=== PATIENT | female | born 1940 | race Caucasian/White ===

== ENCOUNTER 2023-10-31 20:56 | Inpatient (IN) | payer OTHER, SELFPAY ==
[2023-10-31] VITALS (10 sets, daily range): BP systolic 101–138; BP diastolic 53–85; BMI 32.9
[2023-10-31 13:57] LABS: % Basophils 0.6 % (0-2); % Immature Granulocytes 0.3 % (0-0.5); % Lymphocytes 4.4 % (20.5-51.1); % Neutrophils 88.7 % (42.2-75.2); Absolute Basophils 0.1 10^3/uL (0-0.2); Absolute Lymphocytes 0.6 10^3/uL (1.2-3.4); Absolute Monocytes 0.8 10^3/uL (0.1-0.6); Absolute Neutrophils 11.1 10^3/uL (1.4-6.5); Hematocrit 44.8 % (37.0-47.0); Hemoglobin 14.9 g/dL (12.0-16.0); Mean Corp Hgb Conc. 33.3 g/dL (33.0-37.0); Mean Corpuscular Hgb 26.7 pg (27.0-31.0); Mean Corpuscular Volume 80.3 fL (81.0-99.0); Mean Platelet Volume 10.3 fL (7.4-10.4); Nucleated Red Blood Cells % 0 %; Platelet Count 194 10^3/uL (130-400); Red Blood Cell Count 5.58 10^6/uL (4.20-5.40); Red Cell Dist. Width 14.6 % (11.5-14.5); White Blood Cell Count 12.6 10^3/uL (4.8-10.8)
[2023-10-31 14:21] LABS: ALT (SGPT) 30 U/L (0-35); AST (SGOT) 41 U/L (14-36); Albumin 4.2 g/dl (3.5-5.0); Alkaline Phosphatase 99 U/L (38-126); Blood Urea Nitrogen 20 mg/dl (7-17); Calcium 10.1 mg/dl (8.4-10.2); Carbon Dioxide 23 mmol/L (22-30); Chloride 105 mmol/L (98-107); Glucose 174 mg/dl (70-99); Lipase 117 U/L (23-300); Potassium 4.5 mmol/L (3.5-5.1); Sodium 138 mmol/L (135-145); Total Bilirubin 1.3 mg/dl (0.2-1.3); Total Protein 6.8 g/dl (6.3-8.2); eGFR 55.55
--- NOTE | 2023-10-31 16:33 | ED.GENMED ---
History of Present Illness
General
Chief Complaint: Swelling
Source: patient
Time Seen by Provider: 10/31/23 16:18
Travel History
Have you had any contact with someone who has COVID-19?: No
Do you have any symptoms of coronavirus? Fever > 100 degrees, chills, cough, shortness of breath, sore throat, loss of taste or smell, muscle aches, or headache?: No
History of Present Illness
History of Present Illness:
83-year-old female presents complaining of 2 to 3 days worth of worsening right facial swelling pain to the jaw and neck. This started shortly after she noticed the tooth broke in the right upper dental region. She is an insulin-dependent
diabetic. She was at the dentist earlier today but she was nauseous and vomiting and dentist cannot do anything for her tooth. Patient denies chest pain or shortness of breath. No other complaints at this time
Phy Exam
Physical Exam
Physical Exam:
General: Slightly uncomfortable appearing female no acute respiratory distress
HEENT: Normocephalic atraumatic right facial swelling is noted over the angle of the jaw in the submandibular region in the preauricular region. No obvious trismus or drooling or stridor. There is a small papule noted on the right buccal surface
that comes to ahead without drainage. Posterior pharynx is symmetric
Heart: Regular rate and rhythm no murmurs
Lungs: Clear to auscultation bilaterally no wheezing
Extremities: No cyanosis or edema
Scores
Heart Failure Risk
Heart Failure Risk Score: Not Applicable
Course
Orders/Labs/Results
Orders:
Orders
10/31/23 13:37
EKG [Electrocardiogram (*1)] Urgent
Reason for Study: Chest Pain
10/31/23 13:38
EKG- Treatment ONCE
10/31/23 13:50
Complete Blood Count/With Diff Urgent
Comprehensive Metabolic Panel Urgent
Lipase Urgent
Blood Culture Urgent
JADE Source: Blood/Venous
Specimen Description:
10/31/23 16:32
CT Neck With Iv Contrast Urgent
Comment:
Reason For Exam: right jaw and neck swelling
0.9% Sodium Chloride 1000 ml [Nss] 1,000 ml IV BOLUS
10/31/23 16:33
Ondansetron Injectable [Zofran] 4 mg IV NOW STA
10/31/23 19:06
Ampicillin/Sulbactam 3 G [Unasyn] 3 gm 0.9% Sodium Chloride 100 ml [Nss] 100 ml IV NOW
Abnormal Lab Results
10/31/23
13:50
WBC 12.6 H 10^3/uL
(4.8-10.8)
RBC 5.58 H 10^6/uL
(4.20-5.40)
MCV 80.3 L fL
(81.0-99.0)
MCH 26.7 L pg
(27.0-31.0)
RDW 14.6 H %
(11.5-14.5)
Absolute Neuts (auto) 11.1 H 10^3/uL
(1.4-6.5)
Absolute Lymphs (auto) 0.6 L 10^3/uL
(1.2-3.4)
Absolute Monos (auto) 0.8 H 10^3/uL
(0.1-0.6)
Neutrophils % 88.7 H %
(42.2-75.2)
Lymphocytes % 4.4 L %
(20.5-51.1)
BUN 20 H mg/dl
(7-17)
Glucose 174 H mg/dl
(70-99)
AST 41 H U/L
(14-36)
10/31/23 13:50
10/31/23 13:50
Vital Signs
Initial and Last Documented VS:
Initial Vital Signs
Temp Pulse Resp BP Pulse Ox
97.8 F 97 22 134/78 98
10/31/23 13:26 10/31/23 13:26 10/31/23 13:26 10/31/23 13:26 10/31/23 13:26
Last Documented Vital Signs
Temp Pulse Resp BP Pulse Ox
97.8 F 94 16 112/53 96
10/31/23 13:26 10/31/23 16:45 10/31/23 16:45 10/31/23 16:39 10/31/23 16:45
MDM/Problems Addressed
Differential Diagnosis Includes:
Right facial swelling. Differential could include dental abscess versus infection of the parotid gland versus cellulitis
Patient is an insulin-dependent diabetic which increases her risk factor for infection.
Labs demonstrate slight leukocytosis with a white blood cell count over 12,000.
Blood culture pending. Will order CT of neck with IV contrast. Fluids ordered Zofran ordered
*Critical Care Note
Total Time (30-74mins, 75-104mins- exclusive of procedures): Not Applicable
Update Note
Update Note:
CT demonstrates right-sided parotitis. Patient is insulin-dependent diabetic with elevated white count and is vomiting. Risk for getting more sick with this is higher. Will opt for admission. Unasyn ordered through the IV.
ED Attending Note
-
Portions of this chart may have been created with voice recognition software.� Occasional wrong word or��sound alike� substitutions may have occurred due to the inherent limitations of voice recognition software.
Discharge Plan
Departure
Patient Disposition: Admit
Date of Disposition: 10/31/23
Time of Disposition: 19:10
Admit to: Telemetry
Presentation/result/management discussed w/ accepting MD/DO: Hospitalist
Discharge Problem:
Acute suppurative parotitis
Referrals:
UNKNOWN - PT DOES,NOT KNOW [Family Provider] -
Interventions
Interventions:
*Risk Screen - Suicide Last Done: 10/31/23 16:49
*General Assessment Last Done: 10/31/23 16:49
*Neglect/Abuse Screening Last Done: 10/31/23 16:49
*ED COVID-19 Vaccine History Last Done: 10/31/23 16:49
ED- Cardiac Assessment Last Done: 10/31/23 16:51
ED- Pulmonary Assessment Last Done: 10/31/23 16:51
ED-Skin Assessment Last Done: 10/31/23 16:51
[2023-10-31] MEDS: ZOFRAN 4 MG IV (16:55)
[2023-10-31] MEDS: NSS 1000 IV ×2 (16:55→22:51)
[2023-10-31] MEDS: UNASYN IV (19:26)
--- NOTE | 2023-10-31 19:58 | HPS.HSE ---
Family Physician
-
Family Physician: NOT KNOW UNKNOWN - PT DOES
Chief Complaint
-
R Facial Pain and swelling
History of Present Illness
Patient is an 83y F with PMH significant for hypertension and DM-II who presents to ED complaining of R facial pain and swelling. Patient states that her symptoms started yesterday AM when a piece of her tooth (R maxillary) fell out. She had no
pain prior to or immediately following this event. She ate some crackers that afternoon / evening, and then she started with R sided facial pain and swelling. Her pain and swelling increased fairly significantly over a short time. She reports
thick, foul tasting discharge in the mouth and csome clear discharge from the R ear.
Patient had worsening symptoms overnight. She presented to the dentist today for evaluation. However, on her way there she developed LLQ abdominal discomfort and nausea. She had multiple episodes of N/V at the dentist office and evaluation could
not be completed. Patient was referred to the ED for further evaluation.
Patient has had no N/V since arrival here. She states that her R facial pain is much better after being given pain medications (I do not see that she received anything for pain).
Patient states that she has had 2 prior episodes of parotitis. She cannot recall which side they were on. Most recent was this past summer.
Both episodes resolved within a week at home with supportive care only. She did not seek medical attention at those times.
Patient has chronic abdominal discomfort. She states that she has a prior h/o colon cancer s/p resection.
She had a recent CT scan done early this month for evaluation, but has not heard results yet.
Medical History
Past Medical History
Past Medical History: Reports Other
Additional Past Medical History:
Hypertension
DM-II
Colon Cancer
Obesity
Past Surgical History: Reports Other
Additional Past Surgical History:
Partial Colectomy
Right Shoulder Arthroscopy
Cholecystectomy
Bilateral Carpal Tunnel Surgeries
Bilateral Digital Contracture Surgeries
Social History
Tobacco: Former Smoker (Quit smoking 40 years ago.)
Alcohol: None
Drug: None
Family History
Family History: Other (Father: Lung Cancer Mother: CAD, DM Brother: Amyloidosis Sister: Cervical Cancer)
Allergies / Home Medications
Allergies reflects when Allergies were last updated in [facility].
Home Medications with original date entered in [facility]
Allergy/Medication List:
Allergies
Allergy/AdvReac Type Severity Reaction Status Date / Time
codeine Allergy Unknown Verified 10/31/23 13:37
gabapentin Allergy Unknown Verified 10/31/23 13:37
ibuprofen [From Motrin] Allergy Unknown Verified 10/31/23 13:37
mafenide Allergy Unknown Verified 10/31/23 13:37
metoclopramide [From Reglan] Allergy Unknown Verified 10/31/23 13:37
Sulfa (Sulfonamide Allergy Unknown Verified 10/31/23 13:37
Antibiotics)
Home Medications
albuterol sulfate 90 mcg/actuation aerosol inhaler (ProAir HFA) 2 puff inhalation R QIDPRN PRN sob 10/31/23
amlodipine 5 mg tablet (Norvasc) 5 mg PO DAILY 10/31/23
aspirin 81 mg tablet,delayed release 81 mg PO DAILY 10/31/23
dicyclomine 10 mg capsule 10 mg PO TID 10/31/23
dulaglutide 1.5 mg/0.5 mL subcutaneous pen injector (Trulicity) 1.5 mg SC OG 10/31/23
empagliflozin 10 mg tablet (Jardiance) 10 mg PO DAILY 10/31/23
famotidine 40 mg tablet (Pepcid) 40 mg PO HS 10/31/23
fluticasone propionate 50 mcg/actuation nasal spray,suspension 1 spray intranasal DAILY 10/31/23
gabapentin 100 mg capsule 100 mg PO HS 10/31/23
insulin detemir U-100 100 unit/mL (3 mL) subcutaneous pen (Levemir FlexPen) 18 unit SC HS 10/31/23
lisinopril 10 mg tablet 10 mg PO QPM 10/31/23
pantoprazole 40 mg tablet,delayed release (Protonix) 40 mg PO DAILY 10/31/23
rosuvastatin 20 mg tablet (Crestor) 20 mg PO DAILY 10/31/23
Review of Systems
-
History Source: Patient
A 12 point ROS was completed and negative except as noted: Yes
Constitutional: Reports Fatigue and Chills; Denies Fever
EENT: Reports Other (R facial pain / swelling / redness. R ear clear discharge. Oral discharge. Fractured tooth.)
Respiratory: Denies Cough or Trouble Breathing
Cardiac: Denies Chest Pain or Palpitations
Abdomen/GI: Reports Abdominal Pain, Nausea and Vomiting; Denies Diarrhea, Constipated, Bloody Stools or Black Stools
: Denies Dysuria, Frequency or Flank Pain
Musculoskeletal: Denies Joint Pain or Edema
Neurological: Denies Dizzy or Headache
Psych: Denies Depression or Anxiety
Physical Exam
Vital Signs
Vital Signs
Temp Pulse Resp BP Pulse Ox
97.8 F 94 16 112/53 96
10/31/23 13:26 10/31/23 16:45 10/31/23 16:45 10/31/23 16:39 10/31/23 16:45
Physical Exam
General: Other (83y F in no acute distress.)
HEENT: Other (R parotid swelling, erythema and tenderness. No fluctuance. Erythema at salivary opening R buccal mucosa. No visible discharge. Fracture R maxillary tooth with OTC sealant in place. No surrounding erythema / induration.)
Respiratory: Clear; No Wheezes, Rales or Rhonchi
Cardiac: S1/S2 and Regular Rhythm; No Murmur
GI: Soft, Non Distended, Normal Bowel Sounds and Other (Pos tenderness in the LLQ and RUQ areas. No rebound / guarding.)
Musculoskeletal: No Clubbing, No Cyanosis and No Edema
Neuro: AO x 3
Laboratory Results
-
10/31/23 13:50
10/31/23 13:50
Laboratory Results
Total Bilirubin 1.3 mg/dl (0.2-1.3) 10/31/23 13:50
AST 41 U/L (14-36) H 10/31/23 13:50
ALT 30 U/L (0-35) 10/31/23 13:50
Alkaline Phosphatase 99 U/L (38-126) 10/31/23 13:50
Lipase 117 U/L (23-300) 10/31/23 13:50
Impression/Plan
-
A/P: Patient is an 83y F with PMH significant for HTN and DM-II who presents to ED complaining of R facial pain and swelling.
Acute Right Parotitis
- Admit for further evaluation and treatment.
- Suspect suppurative parotitis given presentation and reported oral discharge.
- IV abx with Unasyn.
- Supportive care with pain control, etc.
- ENT evaluation - especially as patient has apparently had multiple similar episodes in the past.
Abdominal Pain
N/V
- Unclear etiology. This seems a more chronic or subacute issue and patient has been seen by her outpatient physicians for this.
- With significant symptoms today and LLQ pain, will check CT A/P to rule out diverticulitis, etc.
- Patient has prior h/o colon cancer and partial colectomy.
- IVFs, antiemetics, etc.
- Follow for clinical changes / recurrent symptoms.
Fractured Tooth
- Fractured R maxillary tooth without evidence of associated infection / abscess.
- Follow-up with Dental as an outpatient after acute issues addressed.
Benign Hypertension
- Stable. Continue current med regimen.
DM-II
- Stable. Hold PO meds acutely.
- Continue basal : bolus insulins.
- SSI as needed.
- Check A1C.
Allergies
- Note that patient allergy list is clearly not reliable. She has listed aspirin and gabapentin - both of which she takes at home on a regular basis.
- She cannot recall the adverse effects of other listed medications, other than sulfa which caused severe reaction in her childhood.
- Monitor closely for any apparent adverse effects of medication(s).
DVT Prophylaxis: SCDs
Code Status: Full
[2023-10-31] MEDS: OMNIPAQUE 50 ML PO (20:49)
[2023-10-31] MEDS: PEPCID 40 MG PO (20:49)
[2023-10-31 22:21] LABS: Glucose - Point of Care 162 mg/dl (70-99)
[2023-10-31] MEDS: LEVEMIR 0.179999999999999993 UNITS SC (22:50)
[2023-10-31] MEDS: PEPCID PO (22:51)
[2023-10-31 23:38] LABS: TSH Reflex To Free T4 1.98 uIU/ml (0.47-4.68)
[2023-11-01] MEDS: UNASYN IV ×4 (02:18→19:43)
[2023-11-01 06:01] VITALS: BP 133/66
[2023-11-01 06:18] LABS: Hematocrit 39.4 % (37.0-47.0); Hemoglobin 12.9 g/dL (12.0-16.0); Mean Corp Hgb Conc. 32.7 g/dL (33.0-37.0); Mean Corpuscular Hgb 26.2 pg (27.0-31.0); Mean Corpuscular Volume 80.1 fL (81.0-99.0); Platelet Count 185 10^3/uL (130-400); Red Blood Cell Count 4.92 10^6/uL (4.20-5.40); White Blood Cell Count 9.7 10^3/uL (4.8-10.8)
[2023-11-01 06:31] LABS: Blood Urea Nitrogen 16 mg/dl (7-17); Calcium 8.7 mg/dl (8.4-10.2); Carbon Dioxide 27 mmol/L (22-30); Chloride 107 mmol/L (98-107); Estimated Creatinine Clearance 39 ml/min; Glucose 109 mg/dl (70-99); Potassium 4.2 mmol/L (3.5-5.1); Sodium 137 mmol/L (135-145); eGFR > 60.00
--- NOTE | 2023-11-01 07:46 | W.PN.HOSP.TC ---
Today's Communication/Plan
-
Awaiting ENT eval
Keep NPO
Assessment / Plan
Assessment / Plan
83y F with PMH significant for HTN and DM-II who presents to ED complaining of R facial pain and swelling.
1. Acute Right Parotitis - continues.
�- Likely suppurative parotitis.
� - Continue IV abx with Unasyn.
� - Continue Supportive care with pain control
� - Await ENT evaluation
2. Abdominal Pain with N/V - chronic, unchanged
�- Unclear etiology.� This seems a more chronic or subacute issue and patient has been seen by her outpatient physicians for this.
�- Continues with LLQ pain, CT done but not read. May show possible hernias.
�- Patient has prior h/o colon cancer and partial colectomy.
� - Continue IVFs, antiemetics
� - Follow for clinical changes.
3. Fractured Tooth - pain tolerated.
�- Fractured R maxillary tooth without evidence of associated infection / abscess.
� - Follow-up with Dental as an outpatient.
4. Benign Hypertension, chronic, stable
� -Continue current med regimen.
5. DM-II, chronic, stable
� -Hold PO meds acutely.
� - Continue basal : bolus insulins.
� - SSI as needed.
� - Check A1C.
6. Allergies, unreliabel list noted at admit
�- She has listed aspirin and gabapentin - both of which she takes at home on a regular basis.
�- She cannot recall the adverse effects of other listed medications, other than sulfa which caused severe reaction in her childhood.
� - Monitor closely for any apparent adverse effects of medication(s).
DVT Prophylaxis:� SCDs
Code Status:� Full
Anticipated Discharge: 24 - 48 hours
Subjective/Interval History
-
Date of Service: November 01, 2023
Feels that her face is still very swollen.
Objective Data
-
Labs:
Laboratory Results
11/01/23 11/01/23
06:02 06:07
WBC 9.7
Hgb 12.9
Hct 39.4
Plt Count 185
Sodium 137
Potassium 4.2
Chloride 107
Carbon Dioxide 27
BUN 16
Creatinine 0.9
Glucose 109 H
Calcium 8.7
Vital Signs:
Vital Signs
Temp Pulse Resp BP Pulse Ox
98.9 F 71 12 133/66 94
10/31/23 22:59 11/01/23 06:05 11/01/23 06:05 11/01/23 06:01 11/01/23 05:56
Review of Systems
-
History Source: Patient
All other systems: Reviewed and negative
EENT: Reports Other (Swollen side of face)
Abdomen/GI: Reports Abdominal Pain (RUQ)
Physical Exam
-
General: Well Developed, Well Nourished, No Apparent Distress, Comfortable, Conversant and Obese
HEENT: Nose Appears Normal, Ears Appear Normal and Other (Swollen right side of face. No problems with speech or with swallowing.)
Respiratory: Clear to Auscultation
Cardiac: Regular Rhythm and S1/S2
GI: Soft, Nondistended and Tender (RUQ to palpation, no rebound.)
Musculoskeletal: No Clubbing, No Cyanosis and No Edema
Skin: Warm and Dry; Negative Rash
Neuro: Awake, Alert and Oriented
Psych: Calm
Data Reviewed
-
Labs: Labs Reviewed by me
[2023-11-01 08:46] VITALS: BP 115/59
[2023-11-01 08:48] LABS: Glucose - Point of Care 96 mg/dl (70-99)
[2023-11-01] MEDS: CRESTOR 20 MG PO (08:49)
[2023-11-01] MEDS: NORVASC 5 MG PO (08:49)
[2023-11-01] MEDS: PROTONIX 40 MG PO (08:49)
[2023-11-01] MEDS: NOVOLOG FLEXPEN-MODERATE RESISTANCE SC ×2 (08:49→17:52)
[2023-11-01] MEDS: ASPIR LOW (ENTERIC COATED) 81 MG PO (08:49)
[2023-11-01 09:17] VITALS: BP 115/59
--- NOTE | 2023-11-01 11:18 | PTCARENOTE ---
pt aaox3. states some discomfort in right face but says it feels better and the swelling has decreased. right face is swollen red and firm. tender to touch. ivf running as ordered. pt is a self to bathroom.
[2023-11-01] MEDS: NSS 1000 IV (11:22)
[2023-11-01 11:29] LABS: Glucose - Point of Care 154 mg/dl (70-99)
[2023-11-01] MEDS: NOVOLOG FLEXPEN-MODERATE RESISTANCE 1 UNITS SC (11:56)
--- NOTE | 2023-11-01 12:05 | CON.MD ---
Consultation - Medical
-
Patient seen and evaluated at the bedside.
Full consult dictated.
A/R-89-fymg-old female with right parotitis.
-Patient with right parotitis clinically and on CT of neck.
-Purulent drainage noted from right parotid duct.
-Continue Unasyn IV.
-Patient should use warm compresses throughout the day.
-Patient should also suck on lemon wedges to encourage salivation.
-Patient will massage gland externally to further express purulent material.
-She should improve with medical treatment over the next 24 to 48 hours.
-I will reevaluate her tomorrow.
[2023-11-01] MEDS: ZOFRAN 4 MG IV (13:29)
--- NOTE | 2023-11-01 14:34 | PTCARENOTE ---
report sent to floor pt transported with all belongings nss running
[2023-11-01 14:45] LABS: Glycohemoglobin (HgbA1c) 8.4 % (4.0-5.6)
[2023-11-01 17:53] LABS: Glucose - Point of Care 90 mg/dl (70-99)
--- NOTE | 2023-11-01 19:43 | PTCARENOTE ---
1530 Received patient from ED AAOX3. Pt oriented to room. IVF infusing without difficulty. Pt tolerated clear liquids. Pt complained that right facial area was swollen. Warm compresses applied as ordered. Pulse 96% Ra. Pt offered no complaints.
Cont to assess patient status.
[2023-11-01] MEDS: ZESTRIL 10 MG PO (19:45)
[2023-11-01 21:19] LABS: Glucose - Point of Care 97 mg/dl (70-99)
[2023-11-01] MEDS: PEPCID 40 MG PO (22:52)
[2023-11-01 23:41] VITALS: BP 122/68
[2023-11-01] MEDS: LEVEMIR 0.0899999999999999967 UNITS SC (23:53)
[2023-11-02] MEDS: LEVEMIR SC (00:36)
[2023-11-02] MEDS: NSS 1000 IV (01:21)
[2023-11-02] MEDS: UNASYN IV ×4 (03:04→19:45)
[2023-11-02 06:01] LABS: Hematocrit 36.3 % (37.0-47.0); Hemoglobin 12.2 g/dL (12.0-16.0); Mean Corp Hgb Conc. 33.6 g/dL (33.0-37.0); Mean Corpuscular Hgb 26.9 pg (27.0-31.0); Mean Platelet Volume 10.1 fL (7.4-10.4); Platelet Count 172 10^3/uL (130-400); Red Blood Cell Count 4.54 10^6/uL (4.20-5.40); Red Cell Dist. Width 14.7 % (11.5-14.5); White Blood Cell Count 6.5 10^3/uL (4.8-10.8)
[2023-11-02 06:25] LABS: Blood Urea Nitrogen 8 mg/dl (7-17); Calcium 8.4 mg/dl (8.4-10.2); Carbon Dioxide 27 mmol/L (22-30); Chloride 109 mmol/L (98-107); Estimated Creatinine Clearance 39 ml/min; Glucose 92 mg/dl (70-99); Sodium 138 mmol/L (135-145); eGFR > 60.00
[2023-11-02 06:43] VITALS: BP 140/70
[2023-11-02] MEDS: PROTONIX 40 MG PO (08:08)
[2023-11-02] MEDS: ASPIR LOW (ENTERIC COATED) 81 MG PO (08:08)
[2023-11-02] MEDS: NORVASC 5 MG PO (08:08)
[2023-11-02] MEDS: CRESTOR 20 MG PO (08:08)
[2023-11-02 08:11] LABS: Glucose - Point of Care 89 mg/dl (70-99)
[2023-11-02] MEDS: NOVOLOG FLEXPEN-MODERATE RESISTANCE SC ×2 (08:17→11:15)
--- NOTE | 2023-11-02 08:26 | W.PN.HOSP.TC ---
Today's Communication/Plan
-
Continue IV antibiotics. Plan for MRCP.
Assessment / Plan
Assessment / Plan
Physical exam:
General: Well Developed, Well Nourished and No Apparent Distress
HEENT: Swollen right side of the face along with tenderness. Normocephalic, Atraumatic and Moist Mucous Membranes
Respiratory: Clear to Auscultation; Negative Wheezes, Rales or Rhonchi
Cardiac: Regular Rhythm and S1/S2
GI: Soft, tender and Nondistended
Musculoskeletal: No Clubbing, No Cyanosis and No Edema
Neuro: Awake, Alert and Oriented
Psych: Calm
A/P:
83y F with PMH significant for HTN and DM-II who presents to ED complaining of R facial pain and swelling.
1. Acute Right Parotitis - continues.
�- Likely suppurative parotitis.
� - Continue IV abx with Unasyn.
� - Continue Supportive care with pain control
� - ENT evaluation appreciated
2. Abdominal Pain with N/V - chronic, unchanged--> today she feels much improved. She did have bowel movements yesterday.
�- Unclear etiology.� This seems a more chronic or subacute issue and patient has been seen by her outpatient physicians for this.
�- Continues with LLQ pain, CT done--> no acute pathology but multiple abnormalities including hepatic hypodensities, nonobstructive renal calculi, prominent intrahepatic bile duct, prominent small bowel loops possible ileus or enteritis, moderate
fecal burden, and uncomplicated abdominal wall hernias. Plan to do a MRCP for further evaluation and trend LFTs.
�- Patient has prior h/o colon cancer and partial colectomy.
� - Continue IVFs, antiemetics
3. Fractured Tooth - pain tolerated.
�- Fractured R maxillary tooth without evidence of associated infection / abscess. Current antibiotics would cover oral infections anyway.
� - Follow-up with Dental as an outpatient.
4. Benign Hypertension, chronic, stable
� -Continue current med regimen.
5. DM-II, chronic, stable
� -Hold PO meds acutely.
� - Continue basal : bolus insulins.
� - SSI as needed.
� - Check A1C.
6. Allergies, unreliabel list noted at admit
�- She has listed aspirin and gabapentin - both of which she takes at home on a regular basis.
�- She cannot recall the adverse effects of other listed medications, other than sulfa which caused severe reaction in her childhood.
� - Monitor closely for any apparent adverse effects of medication(s).
DVT Prophylaxis:� SCDs
Code Status:� Full
Anticipated Discharge: 24 - 48 hours
Subjective/Interval History
-
Date of Service: November 02, 2023
Patient still has some swelling and pain on right perimandibular area but improving. Afebrile
Objective Data
-
Labs:
Laboratory Results
11/02/23
05:14
WBC 6.5
Hgb 12.2
Hct 36.3 L
Plt Count 172
Sodium 138
Potassium 4.0
Chloride 109 H
Carbon Dioxide 27
BUN 8
Creatinine 0.9
Glucose 92
Calcium 8.4
Vital Signs:
Vital Signs
Temp Pulse Resp BP Pulse Ox
98.2 F 72 18 138/70 95
11/02/23 06:43 11/02/23 08:08 11/02/23 06:43 11/02/23 08:08 11/02/23 06:43
I&O
11/01/23 11/02/23 11/03/23
06:59 06:59 06:59
Intake Total 360 / 360
Balance 360 / 360
Review of Systems
-
All other systems: Reviewed and negative
--- NOTE | 2023-11-02 08:32 | W.PN.ENT ---
Today's Communication
-
Continue IV antibiotics and treatment.
Impression / Plan
-
A/L-47-qqel-old female with right parotitis.
-Seems to be a bit improved today overall.
-Continue IV antibiotics.
-Continue warm compress, massage, lemon wedges.
-Keep head elevated if possible.
-Patient can have diabetic diet if okay with medicine.
-Encourage p.o. fluids.
-Hopefully if patient continues to improve she be switched to oral antibiotics and discharged home with conservative therapy, possibly tomorrow.
Subjective Data
-
Patient still feels like her face is swollen.
Neck feels tight at times.
Denies any shortness of breath.
Occasional chills, no fevers.
Swallowing without difficulty.
Objective Data
-
Vital Signs
Temp Pulse Resp BP Pulse Ox
98.2 F 72 18 138/70 95
11/02/23 06:43 11/02/23 08:08 11/02/23 06:43 11/02/23 08:08 11/02/23 06:43
Intake & Output
11/01/23 11/02/23 11/03/23
06:59 06:59 06:59
Intake:
Oral fluids 360 / 360
Other:
Number of approximated MODERATE 3
amounts of urine
Lab Results
11/02/23 05:14
11/02/23 05:14
Calcium 8.4 mg/dl (8.4-10.2) 11/02/23 05:14
Total Bilirubin 1.3 mg/dl (0.2-1.3) 10/31/23 13:50
AST 41 U/L (14-36) H 10/31/23 13:50
ALT 30 U/L (0-35) 10/31/23 13:50
Alkaline Phosphatase 99 U/L (38-126) 10/31/23 13:50
Lipase 117 U/L (23-300) 10/31/23 13:50
Physical Exam
-
Afebrile, vital signs stable.
Awake, alert, oriented, in no acute distress.
Nasal cavity clear anteriorly.
Oral cavity/oropharynx without any edema present.
Tongue and floor mouth within normal limits.
Moderate edema of Stensen's duct on right side with minimal mucopurulent drainage noted.
Right parotid/neck with firm induration and mild edema, tender.
No fluctuance noted.
No overlying erythema of skin.
Neck otherwise soft and supple.
[2023-11-02 11:12] LABS: Glucose - Point of Care 87 mg/dl (70-99)
[2023-11-02 11:29] LABS: ALT (SGPT) 16 U/L (0-35); AST (SGOT) 21 U/L (14-36); Albumin 2.7 g/dl (3.5-5.0); Alkaline Phosphatase 61 U/L (38-126); Direct Bilirubin 0.4 mg/dl (0.0-0.4); Total Bilirubin 0.8 mg/dl (0.2-1.3)
--- NOTE | 2023-11-02 11:45 | CM ---
Chart reviewed. Spoke with pt at bedside
Currently lives with her son, multi-story home.
Reports independent at home. denies dme/past SNF
Has used [facility] in past
PCP - Dr Vazquez
Pharm - [facility]
Anticipate home no needs
[2023-11-02] MEDS: NSS IV (15:58)
[2023-11-02 16:21] LABS: Glucose - Point of Care 162 mg/dl (70-99)
[2023-11-02 16:58] VITALS: BP 140/67
[2023-11-02] MEDS: ZESTRIL 10 MG PO (17:51)
[2023-11-02] MEDS: NOVOLOG FLEXPEN-MODERATE RESISTANCE 1 UNITS SC (17:52)
[2023-11-02] MEDS: PEPCID 40 MG PO (19:47)
[2023-11-02 22:30] LABS: Glucose - Point of Care 123 mg/dl (70-99)
[2023-11-02] MEDS: LEVEMIR 0.179999999999999993 UNITS SC (22:45)
[2023-11-02 23:00] VITALS: BP 115/51
--- NOTE | 2023-11-03 01:58 | PTCARENOTE ---
Received patient from ER, oriented to name, and that she is in the hospital. Assist of 4 from stretcher to her bed. Patient has hx of pseudomonas and VRE. Nursing rubber compounder supervisor made aware and she will be transferred in a.m. d/t no private bed
available at this time. Patient does not get OOB.
[2023-11-03] MEDS: UNASYN IV ×4 (03:00→20:14)
[2023-11-03 07:11] LABS: % Basophils 0.7 % (0-2); % Eosinophils 1.6 % (0-6); % Immature Granulocytes 0.4 % (0-0.5); % Lymphocytes 20.9 % (20.5-51.1); % Monocytes 9.8 % (1.7-9.3); % Neutrophils 66.6 % (42.2-75.2); Absolute Eosinophils 0.1 10^3/uL (0-0.7); Absolute Lymphocytes 1.2 10^3/uL (1.2-3.4); Absolute Monocytes 0.6 10^3/uL (0.1-0.6); Absolute Neutrophils 3.8 10^3/uL (1.4-6.5); Hematocrit 37.8 % (37.0-47.0); Hemoglobin 12.3 g/dL (12.0-16.0); Mean Corp Hgb Conc. 32.5 g/dL (33.0-37.0); Mean Corpuscular Hgb 26.7 pg (27.0-31.0); Mean Corpuscular Volume 82.2 fL (81.0-99.0); Mean Platelet Volume 10.2 fL (7.4-10.4); Nucleated Red Blood Cells % 0 %; Platelet Count 183 10^3/uL (130-400); Red Cell Dist. Width 14.5 % (11.5-14.5); White Blood Cell Count 5.7 10^3/uL (4.8-10.8)
[2023-11-03 07:12] LABS: INR 1.09; PT 14.4 Sec (11.4-14.6)
[2023-11-03 07:27] LABS: ALT (SGPT) 15 U/L (0-35); AST (SGOT) 17 U/L (14-36); Albumin 2.8 g/dl (3.5-5.0); Alkaline Phosphatase 60 U/L (38-126); Blood Urea Nitrogen 12 mg/dl (7-17); Calcium 8.6 mg/dl (8.4-10.2); Carbon Dioxide 28 mmol/L (22-30); Chloride 105 mmol/L (98-107); Estimated Creatinine Clearance 39 ml/min; Glucose 136 mg/dl (70-99); Potassium 3.9 mmol/L (3.5-5.1); Sodium 139 mmol/L (135-145); Total Bilirubin 0.6 mg/dl (0.2-1.3); Total Protein 5.2 g/dl (6.3-8.2); eGFR > 60.00
[2023-11-03 07:35] VITALS: BP 118/64
[2023-11-03 07:56] LABS: Glucose - Point of Care 116 mg/dl (70-99)
[2023-11-03] MEDS: NOVOLOG FLEXPEN-MODERATE RESISTANCE SC ×3 (08:08→17:41)
[2023-11-03] MEDS: ASPIR LOW (ENTERIC COATED) 81 MG PO (08:12)
[2023-11-03] MEDS: CRESTOR 20 MG PO (08:12)
[2023-11-03] MEDS: NORVASC 5 MG PO (08:12)
[2023-11-03] MEDS: PROTONIX 40 MG PO (08:12)
--- NOTE | 2023-11-03 08:39 | W.PN.HOSP.TC ---
Today's Communication/Plan
-
Cont iv antibiotics. MRCP today
Assessment / Plan
Assessment / Plan
Physical exam:
General: Well Developed, Well Nourished and No Apparent Distress
HEENT: Swollen right side of the face along with tenderness. Normocephalic, Atraumatic and Moist Mucous Membranes
Respiratory: Clear to Auscultation; Negative Wheezes, Rales or Rhonchi
Cardiac: Regular Rhythm and S1/S2
GI: Soft, tender and Nondistended
Musculoskeletal: No Clubbing, No Cyanosis and No Edema
Neuro: Awake, Alert and Oriented
Psych: Calm
A/P:
83y F with PMH significant for HTN and DM-II who presents to ED complaining of R facial pain and swelling.
1. Acute Right Parotitis - continues.
�- Likely suppurative parotitis.
� - Continue IV abx with Unasyn.
� - Continue Supportive care with pain control
� - ENT evaluation appreciated. D/C either later today or tomorrow am depending on mrcp.
2. Abdominal Pain with N/V - chronic, unchanged--> today she feels much improved. She did have bowel movements yesterday.
�- Unclear etiology.� This seems a more chronic or subacute issue and patient has been seen by her outpatient physicians for this.
�- Continues with LLQ pain, CT done--> no acute pathology but multiple abnormalities including hepatic hypodensities, nonobstructive renal calculi, prominent intrahepatic bile duct, prominent small bowel loops possible ileus or enteritis, moderate
fecal burden, and uncomplicated abdominal wall hernias. Plan to do a MRCP for further evaluation and trend LFTs normal. Awaiting for MRCP.
�- Patient has prior h/o colon cancer and partial colectomy.
� - Continue IVFs, antiemetics
3. Fractured Tooth - pain tolerated.
�- Fractured R maxillary tooth without evidence of associated infection / abscess. Current antibiotics would cover oral infections anyway.
� - Follow-up with Dental as an outpatient.
4. Benign Hypertension, chronic, stable
� -Continue current med regimen.
5. DM-II, chronic, stable
� -Hold PO meds acutely.
� - Continue basal : bolus insulins.
� - SSI as needed.
� - Check A1C.
6. Allergies, unreliabel list noted at admit
�- She has listed aspirin and gabapentin - both of which she takes at home on a regular basis.
�- She cannot recall the adverse effects of other listed medications, other than sulfa which caused severe reaction in her childhood.
� - Monitor closely for any apparent adverse effects of medication(s).
DVT Prophylaxis:� SCDs
Code Status:� Full
Anticipated Discharge: Within 24 hours
Subjective/Interval History
-
Date of Service: November 03, 2023
Less swollen parotid gland, less pain, no abd pain
Objective Data
-
Labs:
Laboratory Results
11/03/23
06:37
WBC 5.7
Hgb 12.3
Hct 37.8
Plt Count 183
PT 14.4
INR 1.09
Sodium 139
Potassium 3.9
Chloride 105
Carbon Dioxide 28
BUN 12
Creatinine 0.9
Glucose 136 H
Calcium 8.6
Total Bilirubin 0.6
AST 17
ALT 15
Alkaline Phosphatase 60
Vital Signs:
Vital Signs
Temp Pulse Resp BP Pulse Ox
98.1 F 67 18 118/64 97
11/03/23 07:35 11/03/23 07:35 11/03/23 07:35 11/03/23 08:12 11/03/23 07:35
I&O
11/02/23 11/03/23 11/04/23
06:59 06:59 06:59
Intake Total 360 / 360
Balance 360 / 360
--- NOTE | 2023-11-03 09:42 | PN.CDI ---
CDI
- -
CDI:
Physician Documentation Request
Admit Date: 10/31/23 20:56
Dear Doctor Andrew,
Patient admitted with acute right parotitis.
11/02 PN, 'Likely suppurative parotitis- Continue IV abx with Unasyn.'
On admission, WBC 12.6 and HR> 90.
Please clarify which of the following most accurately describes the status of the patient's infection:
Sepsis, POA
Acute right parotitis only
Other
Sepsis
- Systemic manifestations of infection, with 2 or more SIRS criteria which include:
- Fever >100.4 degrees F or hypothermia < 96.8 degrees F
- Leukocytosis - WBC > 12,000 or leukopenia - WBC < 4,000 or > 10% bands
- Tachycardia > 90 beats per minute
- Tachypnea - RR > 20 breaths per minute or PaCO2 , 32mmHg
Source: Merck Manual 2013
- Indicate the known or suspected organism
- Indicate the known or suspected underlying infection, such as parotitis
Localized Infection Only, Without Systemic Illness
- indicate the site/source, such as parotitis
Other
Unable to Determine
Use of terms such as suspected, likely, concern for, or probable (associated with a specific diagnosis that is being evaluated, monitored, or treated as if it exists) are acceptable and can be coded in the inpatient setting, when documented at the
time of discharge.
Thank you,
Lay VELASCO,RN,CCDS
CDI Specialist
Available via [facility]
Please use your independent medical judgment in providing your response.
[2023-11-03 11:33] LABS: Glucose - Point of Care 93 mg/dl (70-99)
--- NOTE | 2023-11-03 12:34 | W.PN.ENT ---
Today's Communication
-
Patient can be DC'd home from ENT perspective on oral antibiotics
Impression / Plan
-
A/A-[id number]-old female with right parotitis.
-Patient continues to improve.
-Has responded well to IV antibiotics.
-Would recommend changing patient to Augmentin 875 p.o. twice daily for 14 days.
-Patient should continue conservative treatment with warm compresses, massage, sialagogues.
-Patient can be discharged from ENT perspective.
-Patient should follow-up in office in 2 weeks for reevaluation.
Subjective Data
-
Patient improved today.
Decrease swelling and tenderness over right face.
Tolerating p.o. diet without any problems, no dysphagia.
Denies any fevers or chills.
No new problems.
Objective Data
-
Vital Signs
Temp Pulse Resp BP Pulse Ox
98.1 F 67 18 118/64 97
11/03/23 07:35 11/03/23 07:35 11/03/23 07:35 11/03/23 08:12 11/03/23 08:00
Intake & Output
11/02/23 11/03/23 11/04/23
06:59 06:59 06:59
Intake:
Oral fluids 360 / 360
Other:
Number of approximated MODERATE 3 3
amounts of urine
Lab Results
11/03/23 06:37
11/03/23 06:37
PT 14.4 Sec (11.4-14.6) 11/03/23 06:37
INR 1.09 11/03/23 06:37
Calcium 8.6 mg/dl (8.4-10.2) 11/03/23 06:37
Total Bilirubin 0.6 mg/dl (0.2-1.3) 11/03/23 06:37
Direct Bilirubin Cancelled 11/02/23 10:48
AST 17 U/L (14-36) 11/03/23 06:37
ALT 15 U/L (0-35) 11/03/23 06:37
Alkaline Phosphatase 60 U/L (38-126) 11/03/23 06:37
Lipase 117 U/L (23-300) 10/31/23 13:50
Physical Exam
-
Afebrile, vital signs stable.
Awake, alert, oriented, in no acute distress.
Nasal cavity clear anteriorly.
Oral cavity/oropharynx without any edema present.
Tongue and floor mouth within normal limits.
Minimal edema of Stensen's duct on right side with scant mucopurulent drainage noted.
Right parotid/neck with firm induration and mild edema, tender.
Decreased swelling and edema noted on right side overall today.
No fluctuance noted.
No overlying erythema of skin.
Neck otherwise soft and supple.
[2023-11-03] MEDS: ATIVAN 1 MG IV (14:57)
[2023-11-03] MEDS: NSS (PRESERVATIVE FREE) 0.5 ML IV (14:57)
[2023-11-03 15:28] VITALS: BP 152/69
[2023-11-03 16:45] LABS: Glucose - Point of Care 88 mg/dl (70-99)
[2023-11-03] MEDS: ZESTRIL 10 MG PO (18:07)
[2023-11-03 21:05] LABS: Glucose - Point of Care 127 mg/dl (70-99)
[2023-11-03] MEDS: PEPCID 40 MG PO (21:30)
[2023-11-03] MEDS: LEVEMIR 0.179999999999999993 UNITS SC (21:30)
[2023-11-03 23:35] VITALS: BP 133/62
[2023-11-04] MEDS: UNASYN IV ×2 (02:14→09:18)
[2023-11-04 07:00] VITALS: BP 139/64
--- NOTE | 2023-11-04 07:36 | W.PN.HOSP.TC ---
Addendum entered and electronically signed by Javad Morales MD 11/04/23 11:54:
Sepsis, present on admission
Original Note:
Today's Communication/Plan
-
Discharge planning today.
Assessment / Plan
Assessment / Plan
Physical exam:
General: Well Developed, Well Nourished and No Apparent Distress
HEENT: Swollen right side of the face along with tenderness much improved today. Normocephalic, Atraumatic and Moist Mucous Membranes
Respiratory: Clear to Auscultation; Negative Wheezes, Rales or Rhonchi
Cardiac: Regular Rhythm and S1/S2
GI: Soft, tender and Nondistended
Musculoskeletal: No Clubbing, No Cyanosis and No Edema
Neuro: Awake, Alert and Oriented
Psych: Calm
A/P:
83y F with PMH significant for HTN and DM-II who presents to ED complaining of R facial pain and swelling.
1. Acute Right Parotitis - continues.
�- Likely suppurative parotitis.
� - Continue IV abx with Unasyn.
� - Continue Supportive care with pain control
� - ENT evaluation appreciated. D/C today
2. Abdominal Pain with N/V - chronic, unchanged--> today she feels much improved. She did have bowel movements while in the hospital but none over the last couple of days so start bowel regimen.
�- Unclear etiology.� This seems a more chronic or subacute issue and patient has been seen by her outpatient physicians for this.
�- Continues with LLQ pain, CT done--> no acute pathology but multiple abnormalities including hepatic hypodensities, nonobstructive renal calculi, prominent intrahepatic bile duct, prominent small bowel loops possible ileus or enteritis, moderate
fecal burden, and uncomplicated abdominal wall hernias. Plan to do a MRCP for further evaluation and trend LFTs normal. Awaiting for MRCP--> MRCP came back and unremarkable for any acute findings.
�- Patient has prior h/o colon cancer and partial colectomy.
� -Stop IVFs, antiemetics
3. Fractured Tooth - pain tolerated.
�- Fractured R maxillary tooth without evidence of associated infection / abscess. Current antibiotics would cover oral infections anyway.
� - Follow-up with Dental as an outpatient.
4. Benign Hypertension, chronic, stable
� -Continue current med regimen.
5. DM-II, chronic, stable
� -Hold PO meds acutely.
� - Continue basal : bolus insulins.
� - SSI as needed.
� - Check A1C.
6. Allergies, unreliabel list noted at admit
�- She has listed aspirin and gabapentin - both of which she takes at home on a regular basis.
�- She cannot recall the adverse effects of other listed medications, other than sulfa which caused severe reaction in her childhood.
� - Monitor closely for any apparent adverse effects of medication(s).
DVT Prophylaxis:� SCDs
Code Status:� Full
Anticipated Discharge: Today
Subjective/Interval History
-
Date of Service: November 04, 2023
Patient seen and examined
Objective Data
-
Vital Signs:
Vital Signs
Temp Pulse Resp BP Pulse Ox
97.9 F 67 20 133/62 97
11/03/23 23:35 11/03/23 23:35 11/03/23 23:35 11/03/23 23:35 11/04/23 03:12
I&O
11/03/23 11/04/23 11/05/23
06:59 06:59 06:59
Intake Total 960 / 960
Balance 960 / 960
[2023-11-04 07:43] LABS: Glucose - Point of Care 95 mg/dl (70-99)
[2023-11-04] MEDS: NOVOLOG FLEXPEN-MODERATE RESISTANCE SC (07:47)
[2023-11-04] MEDS: NORVASC 5 MG PO (09:18)
[2023-11-04] MEDS: PROTONIX 40 MG PO (09:18)
[2023-11-04] MEDS: CRESTOR 20 MG PO (09:20)
[2023-11-04] MEDS: ASPIR LOW (ENTERIC COATED) 81 MG PO (09:20)
[2023-11-04] MEDS: MIRALAX 17 GRAMS PO (09:53)
[2023-11-04] MEDS: SENOKOT 8.59999999999999964 MG PO (09:53)
[2023-11-04] MEDS: MILK OF MAGNESIA 30 ML PO (09:53)
--- NOTE | 2023-11-04 10:15 | W.DCSUMMARY ---
Discharge Summary
Discharge Data
Date of Admission: 10/31/23
Date of Discharge: 11/04/23
-
Pending Results: No
Hospital Course
Patient 83 years old female with history hypertension, diabetes mellitus, colon cancer, obesity, presented to the hospital right neck swelling and pain. She did had a recent teeth fracture of the right maxilla and she had multiple parotitis in the
past apparently. CT scan confirmed right parotitis. She was started on IV antibiotics and pain medications. ENT was consulted. ENT recommended local supportive care as well as continue with antibiotics. Patient improved over the rest of her
hospital course. She had remained afebrile and WBC back to normal. Her swelling and tenderness improved substantially. Patient also had some abdominal pain that was more acute on chronic she was found to have constipation but also some chronic
findings and abnormalities that require follow-up MRCP. MRCP was done and did not reveal any acute abnormalities. Her abdominal pain subsided. We did recommend to continue bowel regimen upon discharge. No other events were noticed. She is going
to be discharged in relatively stable condition today.
Discharge duration: 36 minutes
Discharge Plan
-
Patient Disposition: Home (Routine Discharge)
Discharge Diagnosis/Procedures: Sepsis. Acute right parotitis. Abdominal pain. Constipation. Hypertension. Diabetes mellitus type 2.
Diet: Diabetic, Carb Controlled
Activity: As tolerated
Additional Activity: warm compresses on right parotid gland area, massage, sialagogues.
Driving Restrictions: As prior to admission
Blood Work: Please PCP to order CBC, BMP within 1 week.
Referrals:
Primary care, provider [Other] (See less than 1 week)
Severiano Guan MD [Active] - in two to four weeks
Prescriptions:
New
amoxicillin-pot clavulanate 875-125 mg Tablet
1 tab PO Q12 14 Days Qty: 28 0RF
sennosides [Senna Lax] 8.6 mg Tablet
8.6 mg PO BID Qty: 14 0RF
acetaminophen 325 mg Tablet
650 mg PO Q4HPRN PRN (Reason: Mild Pain / Temp > 101) Qty: 20 0RF
polyethylene glycol 3350 [HealthyLax] 17 gram Powder In Packet
17 g PO DAILY Qty: 14 0RF
Saccharomyces boulardii [Florastor] 250 mg capsule
250 mg PO BID Qty: 20 0RF
Continued
amlodipine [Norvasc] 5 mg Tablet
5 mg PO DAILY
aspirin 81 mg Tablet,Delayed Release (Dr/Ec)
81 mg PO DAILY
pantoprazole [Protonix] 40 mg Tablet,Delayed Release (Dr/Ec)
40 mg PO DAILY
lisinopril 10 mg Tablet
10 mg PO QPM
gabapentin 100 mg Capsule
100 mg PO HS
Jardiance 10 mg Tablet
10 mg PO DAILY
Trulicity 1.5 mg/0.5 mL Pen Injector
1.5 mg SC OG
famotidine [Pepcid] 40 mg Tablet
40 mg PO HS
albuterol sulfate [ProAir HFA] 90 mcg/actuation Hfa Aerosol Inhaler
2 puff INHALATION R QIDPRN PRN (Reason: sob)
fluticasone propionate 50 mcg/actuation [place],Suspension
1 spray INTRANASAL DAILY
dicyclomine 10 mg Capsule
10 mg PO TID
rosuvastatin [Crestor] 20 mg Tablet
20 mg PO DAILY
Levemir FlexPen 100 unit/mL (3 mL) Insulin Pen
18 unit SC HS
Discharge Orders:
Discharge Patient (As Directed); Ordered 11/04/23
Ordered By: Javad Morales
Discharge Date and Time
Discharge Date/Time: 11/04/23 16:20
--- NOTE | 2023-11-04 10:36 | CM ---
MD entered order for discharge.
Spoke with patient she said she was ready for discharge. She signed IMM yesterday.
Offered VN she declined need.
Her daughter Freda will drive her home today.
PLAN Home no needs
[2023-11-04] MEDS: AUGMENTIN 875 MG/125 MG 1 TABLET PO (11:30)
[2023-11-04] MEDS: TYLENOL 650 MG PO (11:33)
[2023-11-04 11:45] LABS: Glucose - Point of Care 151 mg/dl (70-99)
[2023-11-04] MEDS: NOVOLOG FLEXPEN-MODERATE RESISTANCE 1 UNITS SC (11:50)
[2023-11-04] MEDS: DULCOLAX RECTAL (12:45)
[2023-11-04] MEDS: DULCOLAX 10 MG RECTAL (13:00)
== END 2023-11-04 16:20 | disposition home or self-care (01) | DRG 872 ==
LOC: 4 EAST ACU 20:56
PROVIDERS: Emergency Medicine; Internal Medicine; ADMITTING PHYSICIAN Hospitalist; ATTENDING PHYSICIAN Hospitalist; CONSULT PHYSICIAN Otolaryngology; EMERGENCY PHYSICIAN Student in an Organized Health Care Education/Training Program
DX: A41.9 Sepsis, unspecified organism (principal); K11.21 Acute sialoadenitis; Z87.891 Personal history of nicotine dependence; S02.5XXA Fracture of tooth (traumatic), initial encounter for closed fracture; I10 Essential (primary) hypertension; E11.9 Type 2 diabetes mellitus without complications
CPT/HCPCS: 70491; 74177; 74181; 80048; 80053; 82248; 82962; 83036; 83690; 84443; 85025; 85027; 85610; 87040; 93005; 96361; 96365; 96375; 99285; Q9967